=== PATIENT | female | born 1975 | race Caucasian/White ===

== ENCOUNTER 2021-09-06 10:15 | Inpatient (IN) ==
[2021-09-06] MEDS ORDERED: SODIUM CHLORIDE 0.9% 1,000 ML IV STA (10:38)
[2021-09-06 10:47] LABS: Bilirubin,Urine Negative (Negative); Blood, Urine Negative (Negative); Glucose,Urine (UA) >=500 mg/dL (Negative); Ketones,Urine Negative (Negative); Nitrite,Urine Negative (Negative); Protein,Urine Negative; RBC,Urine 1 /HPF (0-4); Squamous Epithelial Cell,Urine Occasional /HPF (0-10); Urine Appearance CLEAR (Clear); Urine Color Yellow (Yellow); Urine Specific Gravity 1.027 (1.001-1.035); Urine Urobilinogen < 2.0 EU/DL (<2.0)
[2021-09-06 10:48] LABS: Basophils # 0.1 10*3/uL (0.0-0.2); Basophils % 0.3 % (0.0-0.8); Eosinophils % 0.1 % (0.00-10.9); Hemoglobin 13.7 GM/DL (12.0-16.0); Immature Granulocytes % 1.3 %; Immature Granulocytes Absolute 0.35 #; Lymphocytes # 1.4 10*3/uL (1.4-4.0); Lymphocytes % 5.1 % (21.3-54.2); Mean Corpuscular HGB Conc 34.3 GM/DL (32-36); Mean Corpuscular Volume 84.9 FL (87-102); Mean Platelet Volume 11.1 FL (9.6-12.0); Monocytes % 8.2 % (1.7-12.7); Platelet Count 291 T/CUMM (130-400); Red Blood Count 4.71 MC/CUMM (3.8-5.5); White Blood Count 27.7 T/CUMM (4-12)
[2021-09-06 11:08] LABS: Alanine Aminotransferase 71 U/L (13-56); Albumin 2.5 G/DL (3.4-5.0); Alkaline Phosphatase 229 U/L (45-117); Aspartate Amino Transferase 75 U/L (0-37); Blood Urea Nitrogen 8 MG/DL (7-18); Calcium 8.6 MG/DL (8.5-10.1); Carbon Dioxide 25 MMOL/L (21-32); Estimated Glom Filtration Rate 87 ML/MIN; Osmolality,Calculated 285.8 MOS/KG (273-304); Potassium 4.1 MMOL/L (3.5-5.1); Sodium 130 MMOL/L (136-145); Total Protein 7.2 G/DL (6.4-8.2)
[2021-09-06 11:14] LABS: Glucose 594 MG/DL (74-106)
[2021-09-06 11:28] LABS: Lymphocytes 1 % (20-55); Metamyelocytes 1 %; Segmented Neutrophils 93 % (50-85); Total Cells Counted 100
[2021-09-06 11:29] LABS: Hypochromia Slight; Platelet Estimate Normal
[2021-09-06] MEDS ORDERED: SODIUM CHLORIDE 0.9% 2,000 ML IV STA (11:39)
[2021-09-06] MEDS ORDERED: LEVOFLOXACIN INJ 750 MG/150 ML PREMIX IV STA (11:39)
[2021-09-06] MEDS ORDERED: INSULIN REGULAR 100 UNIT/ML IV STA (11:40)
[2021-09-06 12:04] LABS: ABG Base Excess 1.6 MMOL/L (-2.5-2.5); ABG HCO3 25.8 MMOL/L (20-26); ABG Oxygen Saturation 96.8 % (95-100); ABG PCO2 31.5 MM HG (35-48); ABG PH 7.493 (7.35-7.45); ABG PO2 80.8 MM HG (80-95)
[2021-09-06] MEDS ORDERED: GLUCAGON 1 MG VIAL IM PRN (12:53)
[2021-09-06] MEDS ORDERED: DEXTROSE 50% 25 GM/50 ML VIAL IV PRN (12:53)
[2021-09-06] MEDS ORDERED: MELATONIN 3 MG TABLET PO PRN (12:55)
[2021-09-06] MEDS ORDERED: BISACODYL 5 MG TABLET PO PRN (12:55)
[2021-09-06] MEDS ORDERED: ACETAMINOPHEN 325 MG TABLET PO PRN (12:55)
[2021-09-06] MEDS ORDERED: MORPHINE 2 MG/1 ML SYRINGE IV PRN (12:55)
[2021-09-06] MEDS ORDERED: NICOTINE 21 MG/24 HR PATCH TRANSDERM PRN (12:55)
[2021-09-06] MEDS: SODIUM CHLORIDE 0.9% 1,000 ML IV SCH ×2 (13:00→18:53)
[2021-09-06] MEDS ORDERED: DEXTROSE 10% 25 GM/250 ML BAG IV PRN (13:02)
[2021-09-06] MEDS: ENOXAPARIN 40 MG/0.4 ML SYRINGE SUBCUT SCH (13:54)
[2021-09-06] MEDS: INSULIN LISPRO 100 UNIT/ML SUBCUT SCH ×2 (13:54→18:52)
[2021-09-06] MEDS: PANTOPRAZOLE 40 MG TABLET PO SCH (13:54)
[2021-09-06 14:04] LABS: Ferritin 251.4 ng/mL (8-252)
[2021-09-06] MEDS: ALBUTEROL 2.5 MG/3 ML NEB RESP TX SCH ×2 (14:37→19:45)
[2021-09-06 14:59] LABS: Barbiturates Screen,Urine Negative (Negative); Benzodiazepines Screen,Urine Negative (Negative); Cannabinoid Screen,Urine Negative (Negative); Opiate Screen,Urine Negative (Negative); Phencyclidine Screen,Urine Negative (Negative)
[2021-09-06] MEDS: ONDANSETRON 4 MG/2 ML VIAL IV PRN (16:26)
[2021-09-06] MEDS: INSULIN GLARGINE 100 UNIT/ML SUBCUT SCH (18:52)
[2021-09-07] MEDS: ALBUTEROL 2.5 MG/3 ML NEB RESP TX SCH ×4 (00:42→19:13)
[2021-09-07] MEDS: SODIUM CHLORIDE 0.9% 1,000 ML IV SCH ×3 (02:00→19:25)
[2021-09-07] MEDS: INSULIN LISPRO 100 UNIT/ML SUBCUT SCH ×6 (02:18→23:11)
[2021-09-07] MEDS: FAMOTIDINE 20 MG TABLET PO SCH ×3 (02:18→21:05)
[2021-09-07] MEDS: ASCORBIC ACID 500 MG TABLET PO SCH ×3 (02:18→21:05)
[2021-09-07 06:38] LABS: Basophils # 0.1 10*3/uL (0.0-0.2); Basophils % 0.3 % (0.0-0.8); Eosinophils % 0.2 % (0.00-10.9); Hematocrit 33.5 VOL% (35.7-47.0); Hemoglobin 11.3 GM/DL (12.0-16.0); Immature Granulocytes % 0.9 %; Immature Granulocytes Absolute 0.24 #; Lymphocytes # 1.5 10*3/uL (1.4-4.0); Mean Corpuscular HGB Conc 33.7 GM/DL (32-36); Mean Corpuscular Volume 86.1 FL (87-102); Mean Platelet Volume 11.3 FL (9.6-12.0); Neutrophils % 85.6 % (38.7-73.9); Platelet Count 290 T/CUMM (130-400); Red Blood Count 3.89 MC/CUMM (3.8-5.5); Red Cell Distribution Width 13.4 % (9.3-17.3); White Blood Count 25.5 T/CUMM (4-12)
[2021-09-07 06:55] LABS: Calcium 7.8 MG/DL (8.5-10.1); Potassium 3.4 MMOL/L (3.5-5.1); Risk Ratio 2.05; VLDL Cholesterol 12.2 MG/DL
[2021-09-07 07:12] LABS: Band Neutrophils 3 % (0-10); Lymphocytes 4 % (20-55); Segmented Neutrophils 88 % (50-85); Total Cells Counted 100
[2021-09-07 07:13] LABS: Microcytosis 1+; Platelet Estimate Normal
[2021-09-07] MEDS ORDERED: DEXAMETHASONE 4 MG/1 ML VIAL IV SCH (09:00)
[2021-09-07] MEDS: INSULIN GLARGINE 100 UNIT/ML SUBCUT SCH ×2 (09:54→21:06)
[2021-09-07] MEDS: CETIRIZINE 10 MG TABLET PO SCH (09:55)
[2021-09-07] MEDS: PANTOPRAZOLE 40 MG TABLET PO SCH (09:56)
[2021-09-07] MEDS: CHOLECALCIFEROL 1,000 UNIT TABLET PO SCH (09:56)
[2021-09-07] MEDS: ZINC GLUCONATE 50 MG TABLET PO SCH (09:56)
[2021-09-07] MEDS ORDERED: MAGNESIUM SULF RIDER 4 GM/100 ML PREMIX IV ONE (11:00)
[2021-09-07] MEDS ORDERED: LEVOFLOXACIN INJ 750 MG/150 ML PREMIX IV SCH (12:00)
[2021-09-07] MEDS ORDERED: POTASSIUM CHLORIDE 20 MEQ TABLET PO ONE (18:00)
[2021-09-07] MEDS ORDERED: VANCOMYCIN INJ 1,500 MG in SODIUM CHLORIDE 0.9% 500 ML IV SCH (18:00)
[2021-09-07] MEDS: ENOXAPARIN 40 MG/0.4 ML SYRINGE SUBCUT SCH (21:05)
[2021-09-08] MEDS: ALBUTEROL 2.5 MG/3 ML NEB RESP TX SCH ×4 (00:34→19:32)
[2021-09-08] MEDS: INSULIN LISPRO 100 UNIT/ML SUBCUT SCH ×8 (01:09→21:49)
[2021-09-08] MEDS: AZTREONAM 2,000 MG in SODIUM CHLORIDE 0.9% 100 ML IV SCH ×3 (02:04→11:07)
[2021-09-08 05:52] LABS: Basophils % 0.1 % (0.0-0.8); Hematocrit 34.7 VOL% (35.7-47.0); Hemoglobin 11.3 GM/DL (12.0-16.0); Immature Granulocytes % 1.1 %; Immature Granulocytes Absolute 0.25 #; Lymphocytes % 4.4 % (21.3-54.2); Mean Corpuscular HGB Conc 32.6 GM/DL (32-36); Mean Corpuscular Volume 88.1 FL (87-102); Monocytes % 6.5 % (1.7-12.7); Neutrophils % 87.9 % (38.7-73.9); Platelet Count 365 T/CUMM (130-400); Red Blood Count 3.94 MC/CUMM (3.8-5.5); Red Cell Distribution Width 13.3 % (9.3-17.3)
[2021-09-08 06:07] LABS: Calcium 8.4 MG/DL (8.5-10.1); Osmolality,Calculated 286.4 MOS/KG (273-304); Potassium 3.5 MMOL/L (3.5-5.1)
[2021-09-08 06:15] LABS: Anisocytosis Slight; Band Neutrophils 7 % (0-10); Lymphocytes 4 % (20-55); Platelet Estimate Normal; Segmented Neutrophils 82 % (50-85); Total Cells Counted 100
[2021-09-08] MEDS: SODIUM CHLORIDE 0.9% 1,000 ML IV SCH ×2 (08:13)
[2021-09-08] MEDS: CHOLECALCIFEROL 1,000 UNIT TABLET PO SCH (09:41)
[2021-09-08] MEDS: PANTOPRAZOLE 40 MG TABLET PO SCH (09:42)
[2021-09-08] MEDS: ZINC GLUCONATE 50 MG TABLET PO SCH (09:42)
[2021-09-08] MEDS: ASCORBIC ACID 500 MG TABLET PO SCH ×2 (09:42→21:47)
[2021-09-08] MEDS: CETIRIZINE 10 MG TABLET PO SCH (09:43)
[2021-09-08] MEDS: FAMOTIDINE 20 MG TABLET PO SCH ×2 (09:43→21:47)
[2021-09-08] MEDS: INSULIN GLARGINE 100 UNIT/ML SUBCUT SCH ×2 (09:44→21:50)
[2021-09-08] MEDS: FLUoxetine 20 MG CAPSULE PO SCH (15:04)
[2021-09-08] MEDS: GABAPENTIN 300 MG CAPSULE PO SCH ×2 (17:50→21:47)
[2021-09-08] MEDS: PIPERACILLIN/TAZOBACTAM 3,375 MG in SODIUM CHLORIDE 0.9% 100 ML IV SCH ×2 (17:50→21:52)
[2021-09-08] MEDS: ENOXAPARIN 40 MG/0.4 ML SYRINGE SUBCUT SCH (21:51)
[2021-09-09] MEDS: ONDANSETRON 4 MG/2 ML VIAL IV PRN ×2 (00:36→18:41)
[2021-09-09] MEDS: ALBUTEROL 2.5 MG/3 ML NEB RESP TX SCH ×3 (01:07→19:19)
[2021-09-09] MEDS: INSULIN LISPRO 100 UNIT/ML SUBCUT SCH ×9 (02:23→22:00)
[2021-09-09] MEDS: PIPERACILLIN/TAZOBACTAM 3,375 MG in SODIUM CHLORIDE 0.9% 100 ML IV SCH ×3 (05:53→22:22)
[2021-09-09 06:17] LABS: Basophils % 0.3 % (0.0-0.8); Eosinophils # 0.1 10*3/uL (0.0-0.87); Eosinophils % 0.5 % (0.00-10.9); Hematocrit 32.9 VOL% (35.7-47.0); Hemoglobin 10.7 GM/DL (12.0-16.0); Immature Granulocytes % 1.4 %; Immature Granulocytes Absolute 0.21 #; Lymphocytes # 2.1 10*3/uL (1.4-4.0); Lymphocytes % 13.5 % (21.3-54.2); Mean Corpuscular HGB Conc 32.5 GM/DL (32-36); Mean Platelet Volume 10.7 FL (9.6-12.0); Monocytes % 6.3 % (1.7-12.7); Platelet Count 414 T/CUMM (130-400); Red Blood Count 3.78 MC/CUMM (3.8-5.5); Red Cell Distribution Width 13.7 % (9.3-17.3); White Blood Count 15.3 T/CUMM (4-12)
[2021-09-09 06:34] LABS: Calcium 8.2 MG/DL (8.5-10.1); Osmolality,Calculated 285.3 MOS/KG (273-304); Potassium 3.2 MMOL/L (3.5-5.1)
[2021-09-09] MEDS: CHOLECALCIFEROL 1,000 UNIT TABLET PO SCH (09:39)
[2021-09-09] MEDS: PANTOPRAZOLE 40 MG TABLET PO SCH (09:39)
[2021-09-09] MEDS: CETIRIZINE 10 MG TABLET PO SCH (09:39)
[2021-09-09] MEDS: ASCORBIC ACID 500 MG TABLET PO SCH ×2 (09:39→20:21)
[2021-09-09] MEDS: FLUoxetine 20 MG CAPSULE PO SCH (09:39)
[2021-09-09] MEDS: ZINC GLUCONATE 50 MG TABLET PO SCH (09:40)
[2021-09-09] MEDS: FAMOTIDINE 20 MG TABLET PO SCH ×2 (09:40→20:22)
[2021-09-09] MEDS: GABAPENTIN 300 MG CAPSULE PO SCH ×3 (09:40→20:22)
[2021-09-09] MEDS: INSULIN GLARGINE 100 UNIT/ML SUBCUT SCH ×2 (10:40→22:25)
[2021-09-09] MEDS ORDERED: POTASSIUM CHLORIDE 20 MEQ TABLET PO ONE (12:27)
[2021-09-09] MEDS: ENOXAPARIN 40 MG/0.4 ML SYRINGE SUBCUT SCH (20:24)
[2021-09-09] MEDS ORDERED: MORPHINE 2 MG/1 ML SYRINGE IV PRN (22:11)
[2021-09-10] MEDS: ALBUTEROL 2.5 MG/3 ML NEB RESP TX SCH ×4 (00:06→19:50)
[2021-09-10] MEDS: INSULIN LISPRO 100 UNIT/ML SUBCUT SCH ×6 (02:33→22:52)
[2021-09-10] MEDS: PIPERACILLIN/TAZOBACTAM 3,375 MG in SODIUM CHLORIDE 0.9% 100 ML IV SCH ×2 (05:42→16:49)
[2021-09-10 05:43] LABS: Basophils # 0.1 10*3/uL (0.0-0.2); Basophils % 0.7 % (0.0-0.8); Eosinophils # 0.2 10*3/uL (0.0-0.87); Eosinophils % 1.8 % (0.00-10.9); Hematocrit 36.4 VOL% (35.7-47.0); Hemoglobin 11.7 GM/DL (12.0-16.0); Immature Granulocytes Absolute 0.25 #; Lymphocytes # 2.8 10*3/uL (1.4-4.0); Lymphocytes % 22.5 % (21.3-54.2); Mean Corpuscular HGB Conc 32.1 GM/DL (32-36); Mean Corpuscular Volume 87.3 FL (87-102); Mean Platelet Volume 10.3 FL (9.6-12.0); Monocytes % 13.3 % (1.7-12.7); Neutrophils % 59.7 % (38.7-73.9); Platelet Count 446 T/CUMM (130-400); Red Blood Count 4.17 MC/CUMM (3.8-5.5); Red Cell Distribution Width 14.1 % (9.3-17.3); White Blood Count 12.5 T/CUMM (4-12)
[2021-09-10 06:09] LABS: Osmolality,Calculated 280.7 MOS/KG (273-304); Potassium 3.4 MMOL/L (3.5-5.1)
[2021-09-10] MEDS: FLUoxetine 20 MG CAPSULE PO SCH (10:51)
[2021-09-10] MEDS: ZINC GLUCONATE 50 MG TABLET PO SCH (10:51)
[2021-09-10] MEDS: CHOLECALCIFEROL 1,000 UNIT TABLET PO SCH (10:51)
[2021-09-10] MEDS: ASCORBIC ACID 500 MG TABLET PO SCH ×2 (10:51→22:51)
[2021-09-10] MEDS: PANTOPRAZOLE 40 MG TABLET PO SCH (10:52)
[2021-09-10] MEDS: CETIRIZINE 10 MG TABLET PO SCH (10:52)
[2021-09-10] MEDS: GABAPENTIN 300 MG CAPSULE PO SCH ×3 (10:52→22:51)
[2021-09-10] MEDS: INSULIN GLARGINE 100 UNIT/ML SUBCUT SCH ×2 (10:53→22:52)
[2021-09-10] MEDS: FAMOTIDINE 20 MG TABLET PO SCH ×2 (10:56→22:51)
[2021-09-10] MEDS: DOXYCYCLINE HYCLATE 100 MG CAPSULE PO SCH ×2 (12:53→22:51)
[2021-09-10] MEDS: POTASSIUM CHLORIDE 20 MEQ TABLET PO SCH ×2 (12:53→22:51)
[2021-09-10] MEDS: ONDANSETRON 4 MG/2 ML VIAL IV PRN (13:50)
[2021-09-10] MEDS ORDERED: INSULIN NPH 100 UNIT/ML SUBCUT SCH (16:30)
[2021-09-10] MEDS: metFORMIN 500 MG TABLET PO SCH (16:48)
[2021-09-10] MEDS: ENOXAPARIN 40 MG/0.4 ML SYRINGE SUBCUT SCH (22:52)
[2021-09-10] MEDS: POLYETHYLENE GLYCOL POWDER 17 GM PACK PO SCH (22:53)
[2021-09-11] MEDS: PIPERACILLIN/TAZOBACTAM 3,375 MG in SODIUM CHLORIDE 0.9% 100 ML IV SCH ×3 (00:36→17:21)
[2021-09-11] MEDS: ALBUTEROL 2.5 MG/3 ML NEB RESP TX SCH ×5 (01:30→19:35)
[2021-09-11 05:32] LABS: Basophils # 0.1 10*3/uL (0.0-0.2); Basophils % 0.4 % (0.0-0.8); Eosinophils # 0.2 10*3/uL (0.0-0.87); Hematocrit 36.1 VOL% (35.7-47.0); Hemoglobin 11.8 GM/DL (12.0-16.0); Immature Granulocytes % 1.7 %; Immature Granulocytes Absolute 0.28 #; Lymphocytes # 2.8 10*3/uL (1.4-4.0); Mean Corpuscular HGB Conc 32.7 GM/DL (32-36); Mean Corpuscular Volume 87.2 FL (87-102); Monocytes % 11.9 % (1.7-12.7); Platelet Count 431 T/CUMM (130-400); Red Blood Count 4.14 MC/CUMM (3.8-5.5); Red Cell Distribution Width 14.1 % (9.3-17.3); White Blood Count 16.6 T/CUMM (4-12)
[2021-09-11] MEDS: INSULIN LISPRO 100 UNIT/ML SUBCUT SCH ×7 (05:53→22:27)
[2021-09-11 05:54] LABS: Basophils # 0.1 10*3/uL (0.0-0.2); Basophils % 0.4 % (0.0-0.8); Eosinophils # 0.2 10*3/uL (0.0-0.87); Eosinophils % 1.1 % (0.00-10.9); Hematocrit 37.6 VOL% (35.7-47.0); Hemoglobin 12.6 GM/DL (12.0-16.0); Immature Granulocytes % 1.8 %; Immature Granulocytes Absolute 0.28 #; Lymphocytes # 2.8 10*3/uL (1.4-4.0); Lymphocytes % 17.4 % (21.3-54.2); Mean Corpuscular HGB Conc 33.5 GM/DL (32-36); Monocytes % 10.8 % (1.7-12.7); Neutrophils % 68.5 % (38.7-73.9); Platelet Count 416 T/CUMM (130-400); Red Blood Count 4.32 MC/CUMM (3.8-5.5); Red Cell Distribution Width 14.1 % (9.3-17.3); White Blood Count 15.9 T/CUMM (4-12)
[2021-09-11 05:55] LABS: Folate 5.11 NG/ML (5.38-24.0); Vitamin B12 279 PG/ML (211-911)
[2021-09-11 07:08] LABS: Sedimentation Rate-Westergren 69 MM/HR (0-20)
[2021-09-11] MEDS: INSULIN GLARGINE 100 UNIT/ML SUBCUT SCH ×2 (09:35→22:27)
[2021-09-11] MEDS: PANTOPRAZOLE 40 MG TABLET PO SCH (09:35)
[2021-09-11] MEDS: CHOLECALCIFEROL 1,000 UNIT TABLET PO SCH (09:35)
[2021-09-11] MEDS: FAMOTIDINE 20 MG TABLET PO SCH ×2 (09:35→21:40)
[2021-09-11] MEDS: GABAPENTIN 300 MG CAPSULE PO SCH ×3 (09:35→21:40)
[2021-09-11] MEDS: metFORMIN 500 MG TABLET PO SCH ×2 (09:35→17:21)
[2021-09-11] MEDS: ZINC GLUCONATE 50 MG TABLET PO SCH (09:35)
[2021-09-11] MEDS: CETIRIZINE 10 MG TABLET PO SCH (09:35)
[2021-09-11] MEDS: FLUoxetine 20 MG CAPSULE PO SCH (09:35)
[2021-09-11] MEDS: CYANOCOBALAMIN 500 MCG TABLET PO SCH (09:35)
[2021-09-11] MEDS: ASCORBIC ACID 500 MG TABLET PO SCH ×2 (09:35→21:40)
[2021-09-11] MEDS: DOXYCYCLINE HYCLATE 100 MG CAPSULE PO SCH ×2 (09:35→21:40)
[2021-09-11] MEDS: POTASSIUM CHLORIDE 20 MEQ TABLET PO SCH (09:35)
[2021-09-11] MEDS: LINACLOTIDE 145 MCG CAPSULE PO SCH (09:35)
[2021-09-11] MEDS: POLYETHYLENE GLYCOL POWDER 17 GM PACK PO SCH ×2 (09:54→21:41)
[2021-09-11] MEDS: ENOXAPARIN 40 MG/0.4 ML SYRINGE SUBCUT SCH (21:40)
[2021-09-11] MEDS: NAPROXEN 500 MG TABLET PO SCH (21:40)
[2021-09-11] MEDS: FOLIC ACID 1 MG TABLET PO SCH (21:40)
[2021-09-11] MEDS: BACLOFEN 10 MG TABLET PO SCH (21:40)
[2021-09-12] MEDS: ALBUTEROL 2.5 MG/3 ML NEB RESP TX SCH ×5 (00:30→20:05)
[2021-09-12] MEDS: PIPERACILLIN/TAZOBACTAM 3,375 MG in SODIUM CHLORIDE 0.9% 100 ML IV SCH (00:30)
[2021-09-12] MEDS: INSULIN LISPRO 100 UNIT/ML SUBCUT SCH ×6 (03:33→22:31)
[2021-09-12 06:49] LABS: Basophils # 0.1 10*3/uL (0.0-0.2); Basophils % 0.5 % (0.0-0.8); Eosinophils # 0.4 10*3/uL (0.0-0.87); Eosinophils % 2.4 % (0.00-10.9); Hematocrit 35.3 VOL% (35.7-47.0); Hemoglobin 11.5 GM/DL (12.0-16.0); Immature Granulocytes % 2.4 %; Immature Granulocytes Absolute 0.42 #; Lymphocytes # 3.3 10*3/uL (1.4-4.0); Lymphocytes % 19.1 % (21.3-54.2); Mean Corpuscular HGB Conc 32.6 GM/DL (32-36); Mean Corpuscular Volume 88.3 FL (87-102); Monocytes % 10.3 % (1.7-12.7); Neutrophils % 65.3 % (38.7-73.9); Platelet Count 465 T/CUMM (130-400); Red Cell Distribution Width 14.1 % (9.3-17.3); White Blood Count 17.3 T/CUMM (4-12)
[2021-09-12 07:07] LABS: Calcium 8.7 MG/DL (8.5-10.1); Osmolality,Calculated 271.7 MOS/KG (273-304); Potassium 3.3 MMOL/L (3.5-5.1)
[2021-09-12] MEDS: ZINC GLUCONATE 50 MG TABLET PO SCH (08:57)
[2021-09-12] MEDS: GABAPENTIN 300 MG CAPSULE PO SCH ×3 (08:58→21:14)
[2021-09-12] MEDS: BACLOFEN 10 MG TABLET PO SCH ×3 (08:58→21:14)
[2021-09-12] MEDS: DOXYCYCLINE HYCLATE 100 MG CAPSULE PO SCH ×2 (08:58→21:14)
[2021-09-12] MEDS: CETIRIZINE 10 MG TABLET PO SCH (08:58)
[2021-09-12] MEDS: ASCORBIC ACID 500 MG TABLET PO SCH ×2 (08:58→21:13)
[2021-09-12] MEDS: FLUoxetine 20 MG CAPSULE PO SCH (08:58)
[2021-09-12] MEDS: CHOLECALCIFEROL 1,000 UNIT TABLET PO SCH (08:58)
[2021-09-12] MEDS: NAPROXEN 500 MG TABLET PO SCH ×2 (08:58→21:14)
[2021-09-12] MEDS: metFORMIN 500 MG TABLET PO SCH ×2 (08:59→17:06)
[2021-09-12] MEDS: FAMOTIDINE 20 MG TABLET PO SCH ×2 (08:59→21:14)
[2021-09-12] MEDS: CYANOCOBALAMIN 500 MCG TABLET PO SCH (08:59)
[2021-09-12] MEDS: PANTOPRAZOLE 40 MG TABLET PO SCH (08:59)
[2021-09-12] MEDS: MEROPENEM 500 MG in SODIUM CHLORIDE 0.9% 100 ML IV SCH ×3 (09:02→21:12)
[2021-09-12 09:07] LABS: Hemoglobin A1 (Alkaline) 97.6 % (96.5-98.5); Hemoglobin A2 (Alkaline) 2.4 % (1.5-3.5)
[2021-09-12] MEDS: LINEZOLID 600 MG TABLET PO SCH ×2 (09:08→21:13)
[2021-09-12] MEDS: POLYETHYLENE GLYCOL POWDER 17 GM PACK PO SCH ×2 (09:09→21:15)
[2021-09-12] MEDS: LINACLOTIDE 145 MCG CAPSULE PO SCH (09:09)
[2021-09-12] MEDS: ENOXAPARIN 40 MG/0.4 ML SYRINGE SUBCUT SCH (21:12)
[2021-09-12] MEDS: FOLIC ACID 1 MG TABLET PO SCH (21:13)
[2021-09-12] MEDS: POTASSIUM CHLORIDE 20 MEQ TABLET PO SCH (21:13)
[2021-09-13] MEDS: ALBUTEROL 2.5 MG/3 ML NEB RESP TX SCH ×4 (00:33→19:00)
[2021-09-13] MEDS: MEROPENEM 500 MG in SODIUM CHLORIDE 0.9% 100 ML IV SCH ×4 (03:03→22:17)
[2021-09-13] MEDS: INSULIN LISPRO 100 UNIT/ML SUBCUT SCH ×6 (03:04→22:30)
[2021-09-13 05:43] LABS: Basophils # 0.1 10*3/uL (0.0-0.2); Basophils % 0.5 % (0.0-0.8); Eosinophils # 0.9 10*3/uL (0.0-0.87); Eosinophils % 4.6 % (0.00-10.9); Hemoglobin 11.2 GM/DL (12.0-16.0); Immature Granulocytes % 2.8 %; Immature Granulocytes Absolute 0.54 #; Lymphocytes # 2.8 10*3/uL (1.4-4.0); Lymphocytes % 14.6 % (21.3-54.2); Mean Corpuscular Volume 88.2 FL (87-102); Mean Platelet Volume 9.8 FL (9.6-12.0); Monocytes % 7.6 % (1.7-12.7); Neutrophils % 69.9 % (38.7-73.9); Platelet Count 516 T/CUMM (130-400); Red Blood Count 3.97 MC/CUMM (3.8-5.5); Red Cell Distribution Width 14.2 % (9.3-17.3); White Blood Count 19.5 T/CUMM (4-12)
[2021-09-13 06:09] LABS: Calcium 8.9 MG/DL (8.5-10.1); Potassium 4.1 MMOL/L (3.5-5.1)
[2021-09-13] MEDS: ONDANSETRON 4 MG/2 ML VIAL IV PRN (06:24)
[2021-09-13 06:36] LABS: Band Neutrophils 2 % (0-10); Eosinophils 2 % (0-10); Lymphocytes 18 % (20-55); Segmented Neutrophils 70 % (50-85); Total Cells Counted 100
[2021-09-13 06:37] LABS: Hypochromia 1+; Microcytosis Slight; Polychromasia Slight
[2021-09-13] MEDS: CHOLECALCIFEROL 1,000 UNIT TABLET PO SCH (10:25)
[2021-09-13] MEDS: NAPROXEN 500 MG TABLET PO SCH ×2 (10:26→22:17)
[2021-09-13] MEDS: ZINC GLUCONATE 50 MG TABLET PO SCH (10:26)
[2021-09-13] MEDS: FLUoxetine 20 MG CAPSULE PO SCH (10:26)
[2021-09-13] MEDS: ASCORBIC ACID 500 MG TABLET PO SCH ×2 (10:26→22:18)
[2021-09-13] MEDS: DOXYCYCLINE HYCLATE 100 MG CAPSULE PO SCH ×2 (10:26→22:18)
[2021-09-13] MEDS: POTASSIUM CHLORIDE 20 MEQ TABLET PO SCH ×2 (10:26→22:17)
[2021-09-13] MEDS: CETIRIZINE 10 MG TABLET PO SCH (10:26)
[2021-09-13] MEDS: LINEZOLID 600 MG TABLET PO SCH ×2 (10:26→22:18)
[2021-09-13] MEDS: PANTOPRAZOLE 40 MG TABLET PO SCH (10:26)
[2021-09-13] MEDS: GABAPENTIN 300 MG CAPSULE PO SCH ×3 (10:27→22:18)
[2021-09-13] MEDS: CYANOCOBALAMIN 500 MCG TABLET PO SCH (10:27)
[2021-09-13] MEDS: BACLOFEN 10 MG TABLET PO SCH ×3 (10:27→22:17)
[2021-09-13] MEDS: FAMOTIDINE 20 MG TABLET PO SCH ×2 (10:27→22:18)
[2021-09-13] MEDS: metFORMIN 500 MG TABLET PO SCH ×2 (10:29→17:50)
[2021-09-13] MEDS: LINACLOTIDE 145 MCG CAPSULE PO SCH (10:29)
[2021-09-13] MEDS: POLYETHYLENE GLYCOL POWDER 17 GM PACK PO SCH ×2 (10:30→22:17)
[2021-09-13] MEDS: ENOXAPARIN 40 MG/0.4 ML SYRINGE SUBCUT SCH (22:17)
[2021-09-13] MEDS: FOLIC ACID 1 MG TABLET PO SCH (22:17)
[2021-09-13] MEDS: guaiFENesin/DM ER 600-30 MG TABLET PO PRN (22:18)
[2021-09-14] MEDS: ALBUTEROL 2.5 MG/3 ML NEB RESP TX SCH ×4 (00:18→19:13)
[2021-09-14] MEDS: INSULIN LISPRO 100 UNIT/ML SUBCUT SCH ×6 (02:43→21:59)
[2021-09-14] MEDS: MEROPENEM 500 MG in SODIUM CHLORIDE 0.9% 100 ML IV SCH ×4 (03:30→21:39)
[2021-09-14 06:51] LABS: Basophils # 0.1 10*3/uL (0.0-0.2); Basophils % 0.5 % (0.0-0.8); Eosinophils # 0.9 10*3/uL (0.0-0.87); Eosinophils % 5.4 % (0.00-10.9); Hematocrit 34.9 VOL% (35.7-47.0); Hemoglobin 11.2 GM/DL (12.0-16.0); Immature Granulocytes % 3.2 %; Immature Granulocytes Absolute 0.54 #; Lymphocytes % 11.7 % (21.3-54.2); Mean Corpuscular HGB Conc 32.1 GM/DL (32-36); Mean Corpuscular Volume 88.8 FL (87-102); Mean Platelet Volume 9.7 FL (9.6-12.0); Monocytes % 7.2 % (1.7-12.7); Platelet Count 554 T/CUMM (130-400); Red Blood Count 3.93 MC/CUMM (3.8-5.5); Red Cell Distribution Width 14.1 % (9.3-17.3); White Blood Count 17.1 T/CUMM (4-12)
[2021-09-14 07:16] LABS: Calcium 8.7 MG/DL (8.5-10.1); Osmolality,Calculated 277.5 MOS/KG (273-304); Potassium 4.4 MMOL/L (3.5-5.1)
[2021-09-14 07:19] LABS: Eosinophils 1 % (0-10); Hypochromia Slight; Lymphocytes 11 % (20-55); Microcytosis Slight; Nucleated Red Blood Cells 1 (0-5); Platelet Estimate Adequate; Segmented Neutrophils 80 % (50-85); Total Cells Counted 100
[2021-09-14 08:35] LABS: INR 1.1; PT Patient Result 11.8 SECS (10.5-12.0)
[2021-09-14] MEDS ORDERED: DAPAGLIFLOZIN 5 MG TABLET PO SCH (09:00)
[2021-09-14] MEDS: metFORMIN 500 MG TABLET PO SCH (09:40)
[2021-09-14] MEDS: FLUoxetine 20 MG CAPSULE PO SCH (09:40)
[2021-09-14] MEDS: BACLOFEN 10 MG TABLET PO SCH ×3 (09:41→21:42)
[2021-09-14] MEDS: POTASSIUM CHLORIDE 20 MEQ TABLET PO SCH (09:41)
[2021-09-14] MEDS: ASCORBIC ACID 500 MG TABLET PO SCH ×2 (09:41→21:41)
[2021-09-14] MEDS: ZINC GLUCONATE 50 MG TABLET PO SCH (09:41)
[2021-09-14] MEDS: GABAPENTIN 300 MG CAPSULE PO SCH ×3 (09:41→21:41)
[2021-09-14] MEDS: PANTOPRAZOLE 40 MG TABLET PO SCH (09:41)
[2021-09-14] MEDS: LINEZOLID 600 MG TABLET PO SCH ×2 (09:42→21:41)
[2021-09-14] MEDS: NAPROXEN 500 MG TABLET PO SCH ×2 (09:42→21:41)
[2021-09-14] MEDS: CETIRIZINE 10 MG TABLET PO SCH (09:42)
[2021-09-14] MEDS: FAMOTIDINE 20 MG TABLET PO SCH ×2 (09:42→21:42)
[2021-09-14] MEDS: CHOLECALCIFEROL 1,000 UNIT TABLET PO SCH (09:42)
[2021-09-14] MEDS: CYANOCOBALAMIN 500 MCG TABLET PO SCH (09:42)
[2021-09-14] MEDS: DOXYCYCLINE HYCLATE 100 MG CAPSULE PO SCH ×2 (09:44→21:41)
[2021-09-14] MEDS: LINACLOTIDE 145 MCG CAPSULE PO SCH (10:32)
[2021-09-14] MEDS: POLYETHYLENE GLYCOL POWDER 17 GM PACK PO SCH ×2 (10:32→22:01)
[2021-09-14] MEDS: ACETYLCYSTEINE 600 MG CAPSULE PO SCH ×2 (17:44→21:59)
[2021-09-14] MEDS: guaiFENesin/DM ER 600-30 MG TABLET PO PRN (21:41)
[2021-09-14] MEDS: FOLIC ACID 1 MG TABLET PO SCH (21:42)
[2021-09-14] MEDS: ENOXAPARIN 40 MG/0.4 ML SYRINGE SUBCUT SCH (21:43)
[2021-09-15] MEDS: ALBUTEROL 2.5 MG/3 ML NEB RESP TX SCH ×4 (01:04→19:34)
[2021-09-15] MEDS: MEROPENEM 500 MG in SODIUM CHLORIDE 0.9% 100 ML IV SCH ×4 (03:32→21:57)
[2021-09-15] MEDS: INSULIN LISPRO 100 UNIT/ML SUBCUT SCH ×5 (03:37→22:01)
[2021-09-15 05:29] LABS: Basophils # 0.1 10*3/uL (0.0-0.2); Basophils % 0.5 % (0.0-0.8); Eosinophils # 0.8 10*3/uL (0.0-0.87); Eosinophils % 4.6 % (0.00-10.9); Hematocrit 34.3 VOL% (35.7-47.0); Hemoglobin 10.9 GM/DL (12.0-16.0); Immature Granulocytes % 2.2 %; Immature Granulocytes Absolute 0.36 #; Lymphocytes # 2.2 10*3/uL (1.4-4.0); Lymphocytes % 13.1 % (21.3-54.2); Mean Corpuscular HGB Conc 31.8 GM/DL (32-36); Mean Platelet Volume 9.8 FL (9.6-12.0); Monocytes % 5.2 % (1.7-12.7); Neutrophils % 74.4 % (38.7-73.9); Platelet Count 496 T/CUMM (130-400); Red Blood Count 3.81 MC/CUMM (3.8-5.5); Red Cell Distribution Width 14.3 % (9.3-17.3); White Blood Count 16.7 T/CUMM (4-12)
[2021-09-15 05:58] LABS: Calcium 8.7 MG/DL (8.5-10.1); Osmolality,Calculated 274.8 MOS/KG (273-304); Potassium 3.7 MMOL/L (3.5-5.1)
[2021-09-15] MEDS: ONDANSETRON 4 MG/2 ML VIAL IV PRN ×2 (06:25→17:09)
[2021-09-15] MEDS: LINACLOTIDE 145 MCG CAPSULE PO SCH (07:50)
[2021-09-15] MEDS: CETIRIZINE 10 MG TABLET PO SCH (09:46)
[2021-09-15] MEDS: BACLOFEN 10 MG TABLET PO SCH ×3 (09:46→22:02)
[2021-09-15] MEDS: LINEZOLID 600 MG TABLET PO SCH ×2 (09:47→22:01)
[2021-09-15] MEDS: DAPAGLIFLOZIN 10 MG TABLET PO SCH (09:47)
[2021-09-15] MEDS: POTASSIUM CHLORIDE 20 MEQ TABLET PO SCH (09:47)
[2021-09-15] MEDS: FLUoxetine 20 MG CAPSULE PO SCH (09:47)
[2021-09-15] MEDS: CYANOCOBALAMIN 500 MCG TABLET PO SCH (09:47)
[2021-09-15] MEDS: ZINC GLUCONATE 50 MG TABLET PO SCH (09:47)
[2021-09-15] MEDS: PANTOPRAZOLE 40 MG TABLET PO SCH (09:47)
[2021-09-15] MEDS: NAPROXEN 500 MG TABLET PO SCH ×2 (09:47→22:02)
[2021-09-15] MEDS: DOXYCYCLINE HYCLATE 100 MG CAPSULE PO SCH ×2 (09:47→22:02)
[2021-09-15] MEDS: ASCORBIC ACID 500 MG TABLET PO SCH ×2 (09:47→22:02)
[2021-09-15] MEDS: GABAPENTIN 300 MG CAPSULE PO SCH ×3 (09:47→22:03)
[2021-09-15] MEDS: FAMOTIDINE 20 MG TABLET PO SCH ×2 (09:48→22:02)
[2021-09-15] MEDS: CHOLECALCIFEROL 5,000 UNIT TABLET PO SCH (09:48)
[2021-09-15] MEDS: ACETYLCYSTEINE 600 MG CAPSULE PO SCH ×2 (09:52→22:13)
[2021-09-15] MEDS: POLYETHYLENE GLYCOL POWDER 17 GM PACK PO SCH ×2 (09:56→22:04)
[2021-09-15] MEDS: guaiFENesin/DM ER 600-30 MG TABLET PO PRN (22:03)
[2021-09-15] MEDS: FOLIC ACID 1 MG TABLET PO SCH (22:03)
[2021-09-15] MEDS: ENOXAPARIN 40 MG/0.4 ML SYRINGE SUBCUT SCH (22:04)
[2021-09-16] MEDS: ALBUTEROL 2.5 MG/3 ML NEB RESP TX SCH ×4 (01:24→19:24)
[2021-09-16] MEDS: MEROPENEM 500 MG in SODIUM CHLORIDE 0.9% 100 ML IV SCH ×4 (03:55→21:13)
[2021-09-16] MEDS: ONDANSETRON 4 MG/2 ML VIAL IV PRN (05:13)
[2021-09-16 06:30] LABS: Basophils # 0.1 10*3/uL (0.0-0.2); Basophils % 0.5 % (0.0-0.8); Eosinophils # 0.8 10*3/uL (0.0-0.87); Eosinophils % 3.8 % (0.00-10.9); Hematocrit 34.2 VOL% (35.7-47.0); Hemoglobin 10.8 GM/DL (12.0-16.0); Immature Granulocytes % 1.9 %; Immature Granulocytes Absolute 0.41 #; Lymphocytes # 2.2 10*3/uL (1.4-4.0); Lymphocytes % 10.2 % (21.3-54.2); Mean Corpuscular HGB Conc 31.6 GM/DL (32-36); Mean Corpuscular Volume 90.7 FL (87-102); Mean Platelet Volume 9.7 FL (9.6-12.0); Monocytes % 5.1 % (1.7-12.7); Neutrophils % 78.5 % (38.7-73.9); Platelet Count 586 T/CUMM (130-400); Red Blood Count 3.77 MC/CUMM (3.8-5.5); Red Cell Distribution Width 14.5 % (9.3-17.3); White Blood Count 21.2 T/CUMM (4-12)
[2021-09-16 06:41] LABS: Calcium 9.4 MG/DL (8.5-10.1); Osmolality,Calculated 274.8 MOS/KG (273-304); Potassium 4.1 MMOL/L (3.5-5.1)
[2021-09-16] MEDS: LINACLOTIDE 145 MCG CAPSULE PO SCH (07:21)
[2021-09-16 08:51] LABS: ABG Base Excess -3.8 MMOL/L (-2.5-2.5); ABG HCO3 20.3 MMOL/L (20-26); ABG Oxygen Saturation 91.8 % (95-100); ABG PCO2 33.9 MM HG (35-48); ABG PH 7.396 (7.35-7.45); ABG PO2 63.9 MM HG (80-95); ABG TCO2 21.4 MMOL/L (23-27)
[2021-09-16] MEDS: FLUoxetine 20 MG CAPSULE PO SCH (09:40)
[2021-09-16] MEDS: CETIRIZINE 10 MG TABLET PO SCH (09:40)
[2021-09-16] MEDS: POTASSIUM CHLORIDE 20 MEQ TABLET PO SCH (09:40)
[2021-09-16] MEDS: ZINC GLUCONATE 50 MG TABLET PO SCH (09:41)
[2021-09-16] MEDS: GABAPENTIN 300 MG CAPSULE PO SCH ×3 (09:41→21:07)
[2021-09-16] MEDS: DOXYCYCLINE HYCLATE 100 MG CAPSULE PO SCH ×2 (09:41→21:07)
[2021-09-16] MEDS: BACLOFEN 10 MG TABLET PO SCH ×3 (09:41→21:07)
[2021-09-16] MEDS: ACETYLCYSTEINE 600 MG CAPSULE PO SCH (09:41)
[2021-09-16] MEDS: PANTOPRAZOLE 40 MG TABLET PO SCH (09:42)
[2021-09-16] MEDS: CHOLECALCIFEROL 5,000 UNIT TABLET PO SCH (09:42)
[2021-09-16] MEDS: FAMOTIDINE 20 MG TABLET PO SCH ×2 (09:42→21:08)
[2021-09-16] MEDS: CYANOCOBALAMIN 500 MCG TABLET PO SCH (09:42)
[2021-09-16] MEDS: ASCORBIC ACID 500 MG TABLET PO SCH ×2 (09:42→21:06)
[2021-09-16] MEDS: INSULIN LISPRO 100 UNIT/ML SUBCUT SCH ×4 (09:43→21:09)
[2021-09-16] MEDS: POLYETHYLENE GLYCOL POWDER 17 GM PACK PO SCH ×2 (09:43→20:36)
[2021-09-16] MEDS: DAPAGLIFLOZIN 10 MG TABLET PO SCH (09:46)
[2021-09-16] MEDS: FUROSEMIDE 40 MG/4 ML VIAL IV SCH ×2 (09:46→21:07)
[2021-09-16] MEDS: NAPROXEN 500 MG TABLET PO SCH (19:37)
[2021-09-16] MEDS: LINEZOLID 600 MG TABLET PO SCH (19:37)
[2021-09-16] MEDS: MONTELUKAST 10 MG TABLET PO SCH (21:06)
[2021-09-16] MEDS: ENOXAPARIN 40 MG/0.4 ML SYRINGE SUBCUT SCH (21:06)
[2021-09-16] MEDS: FOLIC ACID 1 MG TABLET PO SCH (21:07)
[2021-09-16] MEDS: guaiFENesin/DM ER 600-30 MG TABLET PO PRN (21:07)
[2021-09-16] MEDS: DEXAMETHASONE 10 MG/1 ML VIAL IV SCH (21:09)
[2021-09-16] MEDS: LINEZOLID INJ 600 MG/300 ML PREMIX IV SCH (21:55)
[2021-09-16] MEDS: ALUMINUM/MAGNES/SIMETH MAX STR 30 ML UDCUP PO SCH (22:09)
[2021-09-17] MEDS: ALBUTEROL 2.5 MG/3 ML NEB RESP TX SCH ×4 (01:18→20:21)
[2021-09-17] MEDS: ONDANSETRON 4 MG/2 ML VIAL IV PRN (01:53)
[2021-09-17] MEDS: MEROPENEM 500 MG in SODIUM CHLORIDE 0.9% 100 ML IV SCH ×4 (02:57→22:40)
[2021-09-17 07:43] LABS: Calcium 9.8 MG/DL (8.5-10.1); Osmolality,Calculated 274.4 MOS/KG (273-304); Potassium 4.4 MMOL/L (3.5-5.1)
[2021-09-17 13:01] LABS: Basophils % 0.2 % (0.0-0.8); Eosinophils % 0.1 % (0.00-10.9); Hematocrit 34.2 VOL% (35.7-47.0); Lymphocytes % 5.4 % (21.3-54.2); Mean Corpuscular HGB Conc 32.2 GM/DL (32-36); Mean Corpuscular Volume 89.1 FL (87-102); Mean Platelet Volume 10.2 FL (9.6-12.0); Monocytes % 1.1 % (1.7-12.7); Neutrophils % 92.3 % (38.7-73.9); Platelet Count 557 T/CUMM (130-400); Red Blood Count 3.84 MC/CUMM (3.8-5.5); Red Cell Distribution Width 14.4 % (9.3-17.3); White Blood Count 20.8 T/CUMM (4-12)
[2021-09-17 13:02] LABS: Immature Granulocytes % 0.9 %; Immature Granulocytes Absolute 0.18 #; Lymphocytes # 1.1 10*3/uL (1.4-4.0)
[2021-09-17] MEDS: BACLOFEN 10 MG TABLET PO SCH ×3 (13:35→22:39)
[2021-09-17] MEDS: POTASSIUM CHLORIDE 20 MEQ TABLET PO SCH (13:35)
[2021-09-17] MEDS: LINACLOTIDE 145 MCG CAPSULE PO SCH (13:35)
[2021-09-17] MEDS: DAPAGLIFLOZIN 10 MG TABLET PO SCH (13:35)
[2021-09-17] MEDS: FUROSEMIDE 40 MG/4 ML VIAL IV SCH ×2 (13:35→17:22)
[2021-09-17] MEDS: DEXAMETHASONE 10 MG/1 ML VIAL IV SCH ×2 (13:35→22:38)
[2021-09-17] MEDS: POLYETHYLENE GLYCOL POWDER 17 GM PACK PO SCH ×2 (13:36→22:40)
[2021-09-17] MEDS: CYANOCOBALAMIN 500 MCG TABLET PO SCH (13:37)
[2021-09-17] MEDS: ALUMINUM/MAGNES/SIMETH MAX STR 30 ML UDCUP PO SCH (13:37)
[2021-09-17] MEDS: ASCORBIC ACID 500 MG TABLET PO SCH ×2 (13:37→22:39)
[2021-09-17] MEDS: GABAPENTIN 300 MG CAPSULE PO SCH ×3 (13:37→22:39)
[2021-09-17] MEDS: CHOLECALCIFEROL 5,000 UNIT TABLET PO SCH (13:38)
[2021-09-17] MEDS: CETIRIZINE 10 MG TABLET PO SCH (13:38)
[2021-09-17] MEDS: LINEZOLID INJ 600 MG/300 ML PREMIX IV SCH ×2 (13:38→23:50)
[2021-09-17] MEDS: INSULIN LISPRO 100 UNIT/ML SUBCUT SCH ×4 (13:54→22:38)
[2021-09-17] MEDS: FAMOTIDINE 20 MG TABLET PO SCH (20:26)
[2021-09-17] MEDS: DOXYCYCLINE HYCLATE 100 MG CAPSULE PO SCH (20:26)
[2021-09-17] MEDS: PANTOPRAZOLE 40 MG TABLET PO SCH (20:26)
[2021-09-17] MEDS ORDERED: INSULIN GLARGINE 100 UNIT/ML SUBCUT SCH (21:00)
[2021-09-17] MEDS: ENOXAPARIN 40 MG/0.4 ML SYRINGE SUBCUT SCH (22:37)
[2021-09-17] MEDS: PANTOPRAZOLE 40 MG VIAL IV SCH (22:38)
[2021-09-17] MEDS: MONTELUKAST 10 MG TABLET PO SCH (22:39)
[2021-09-17] MEDS: FOLIC ACID 1 MG TABLET PO SCH (22:39)
[2021-09-18] MEDS: ALBUTEROL 2.5 MG/3 ML NEB RESP TX SCH ×4 (01:58→20:10)
[2021-09-18] MEDS: MEROPENEM 500 MG in SODIUM CHLORIDE 0.9% 100 ML IV SCH ×4 (03:15→21:50)
[2021-09-18 06:08] LABS: Basophils % 0.2 % (0.0-0.8); Hematocrit 32.4 VOL% (35.7-47.0); Hemoglobin 10.3 GM/DL (12.0-16.0); Immature Granulocytes % 1.3 %; Immature Granulocytes Absolute 0.27 #; Lymphocytes % 4.7 % (21.3-54.2); Mean Corpuscular HGB Conc 31.8 GM/DL (32-36); Mean Corpuscular Volume 89.3 FL (87-102); Mean Platelet Volume 9.8 FL (9.6-12.0); Monocytes % 2.5 % (1.7-12.7); Neutrophils % 91.3 % (38.7-73.9); Platelet Count 613 T/CUMM (130-400); Red Blood Count 3.63 MC/CUMM (3.8-5.5); Red Cell Distribution Width 14.2 % (9.3-17.3); White Blood Count 21.6 T/CUMM (4-12)
[2021-09-18 06:19] LABS: Alanine Aminotransferase 20 U/L (13-56); Albumin 1.5 G/DL (3.4-5.0); Alkaline Phosphatase 306 U/L (45-117); Aspartate Amino Transferase 18 U/L (0-37); Bilirubin,Total < 0.39 MG/DL (0.20-1.00); Blood Urea Nitrogen 21 MG/DL (7-18); Calcium 9.7 MG/DL (8.5-10.1); Carbon Dioxide 26 MMOL/L (21-32); Estimated Glom Filtration Rate 99 ML/MIN; Glucose 389 MG/DL (74-106); Osmolality,Calculated 282.5 MOS/KG (273-304); Potassium 4.3 MMOL/L (3.5-5.1); Sodium 132 MMOL/L (136-145); Total Protein 7.9 G/DL (6.4-8.2)
[2021-09-18 06:39] LABS: Band Neutrophils 1 % (0-10); Hypochromia 1+; Lymphocytes 4 % (20-55); Microcytosis 1+; Segmented Neutrophils 92 % (50-85); Total Cells Counted 100
[2021-09-18] MEDS: INSULIN LISPRO 100 UNIT/ML SUBCUT SCH ×4 (08:58→21:52)
[2021-09-18] MEDS: LINACLOTIDE 145 MCG CAPSULE PO SCH (09:50)
[2021-09-18] MEDS: FUROSEMIDE 40 MG/4 ML VIAL IV SCH ×2 (09:51→17:39)
[2021-09-18] MEDS: DAPAGLIFLOZIN 10 MG TABLET PO SCH (09:51)
[2021-09-18] MEDS: DEXAMETHASONE 10 MG/1 ML VIAL IV SCH ×2 (09:51→21:51)
[2021-09-18] MEDS: POTASSIUM CHLORIDE 20 MEQ TABLET PO SCH (09:52)
[2021-09-18] MEDS: BACLOFEN 10 MG TABLET PO SCH ×3 (09:52→21:51)
[2021-09-18] MEDS: ENOXAPARIN 40 MG/0.4 ML SYRINGE SUBCUT SCH ×2 (09:53→22:57)
[2021-09-18] MEDS: ALUMINUM/MAGNES/SIMETH MAX STR 30 ML UDCUP PO SCH (09:54)
[2021-09-18] MEDS: POLYETHYLENE GLYCOL POWDER 17 GM PACK PO SCH ×2 (09:54→22:56)
[2021-09-18] MEDS: GABAPENTIN 300 MG CAPSULE PO SCH ×3 (09:54→21:51)
[2021-09-18] MEDS: PANTOPRAZOLE 40 MG VIAL IV SCH ×2 (09:55→21:52)
[2021-09-18] MEDS: CYANOCOBALAMIN 500 MCG TABLET PO SCH (09:55)
[2021-09-18] MEDS: CHOLECALCIFEROL 5,000 UNIT TABLET PO SCH (09:56)
[2021-09-18] MEDS: ASCORBIC ACID 500 MG TABLET PO SCH ×2 (09:56→21:50)
[2021-09-18] MEDS: CETIRIZINE 10 MG TABLET PO SCH (09:57)
[2021-09-18] MEDS: LINEZOLID INJ 600 MG/300 ML PREMIX IV SCH ×2 (10:00→22:56)
[2021-09-18] MEDS ORDERED: ALUM/MAG/SIMETH/LIDO VISC 1:1 30 ML BOTTLE PO ONE (18:25)
[2021-09-18] MEDS: MONTELUKAST 10 MG TABLET PO SCH (21:50)
[2021-09-18] MEDS: FOLIC ACID 1 MG TABLET PO SCH (21:51)
[2021-09-18] MEDS: INSULIN GLARGINE 100 UNIT/ML SUBCUT SCH (21:52)
[2021-09-19] MEDS: ALBUTEROL 2.5 MG/3 ML NEB RESP TX SCH ×4 (01:05→19:55)
[2021-09-19] MEDS: ONDANSETRON 4 MG/2 ML VIAL IV PRN (02:39)
[2021-09-19] MEDS: MEROPENEM 500 MG in SODIUM CHLORIDE 0.9% 100 ML IV SCH ×4 (03:55→18:45)
[2021-09-19 06:11] LABS: Basophils % 0.1 % (0.0-0.8); Hematocrit 32.2 VOL% (35.7-47.0); Hemoglobin 10.2 GM/DL (12.0-16.0); Immature Granulocytes % 1.4 %; Immature Granulocytes Absolute 0.23 #; Lymphocytes # 1.1 10*3/uL (1.4-4.0); Lymphocytes % 6.9 % (21.3-54.2); Mean Corpuscular HGB Conc 31.7 GM/DL (32-36); Mean Platelet Volume 9.7 FL (9.6-12.0); Monocytes % 3.2 % (1.7-12.7); Neutrophils % 88.4 % (38.7-73.9); Platelet Count 572 T/CUMM (130-400); Red Blood Count 3.62 MC/CUMM (3.8-5.5); Red Cell Distribution Width 13.9 % (9.3-17.3); White Blood Count 16.5 T/CUMM (4-12)
[2021-09-19 06:30] LABS: Albumin 1.5 G/DL (3.4-5.0); Bilirubin,Total 0.9 MG/DL (0.20-1.00); Calcium 8.7 MG/DL (8.5-10.1); Osmolality,Calculated 293.2 MOS/KG (273-304); Potassium 4.3 MMOL/L (3.5-5.1); Total Protein 7.5 G/DL (6.4-8.2)
[2021-09-19] MEDS: INSULIN LISPRO 100 UNIT/ML SUBCUT SCH ×4 (08:12→23:10)
[2021-09-19] MEDS: LINACLOTIDE 145 MCG CAPSULE PO SCH (08:13)
[2021-09-19] MEDS: CYANOCOBALAMIN 500 MCG TABLET PO SCH (08:14)
[2021-09-19] MEDS: PANTOPRAZOLE 40 MG VIAL IV SCH ×2 (08:23→21:52)
[2021-09-19] MEDS: FUROSEMIDE 40 MG/4 ML VIAL IV SCH ×3 (08:26→18:44)
[2021-09-19] MEDS: DEXAMETHASONE 10 MG/1 ML VIAL IV SCH ×2 (08:27→21:50)
[2021-09-19] MEDS: CETIRIZINE 10 MG TABLET PO SCH (08:28)
[2021-09-19] MEDS: GABAPENTIN 300 MG CAPSULE PO SCH ×3 (08:28→21:50)
[2021-09-19] MEDS: ENOXAPARIN 40 MG/0.4 ML SYRINGE SUBCUT SCH ×2 (08:28→21:51)
[2021-09-19] MEDS: BACLOFEN 10 MG TABLET PO SCH ×3 (08:28→21:51)
[2021-09-19] MEDS: POTASSIUM CHLORIDE 20 MEQ TABLET PO SCH (08:28)
[2021-09-19] MEDS: CHOLECALCIFEROL 5,000 UNIT TABLET PO SCH (08:28)
[2021-09-19] MEDS: ASCORBIC ACID 500 MG TABLET PO SCH ×2 (08:29→21:50)
[2021-09-19] MEDS: DAPAGLIFLOZIN 10 MG TABLET PO SCH (08:29)
[2021-09-19] MEDS: POLYETHYLENE GLYCOL POWDER 17 GM PACK PO SCH ×2 (08:29→21:53)
[2021-09-19] MEDS: ALUMINUM/MAGNES/SIMETH MAX STR 30 ML UDCUP PO SCH ×2 (08:29→08:58)
[2021-09-19] MEDS: LINEZOLID INJ 600 MG/300 ML PREMIX IV SCH ×2 (10:15→22:11)
[2021-09-19] MEDS: metFORMIN 500 MG TABLET PO SCH ×3 (12:29→17:23)
[2021-09-19] MEDS ORDERED: glipiZIDE 5 MG TABLET PO SCH (17:00)
[2021-09-19] MEDS: MONTELUKAST 10 MG TABLET PO SCH (21:49)
[2021-09-19] MEDS: INSULIN GLARGINE 100 UNIT/ML SUBCUT SCH (21:51)
[2021-09-19] MEDS: FOLIC ACID 1 MG TABLET PO SCH (21:51)
[2021-09-20] MEDS: ALBUTEROL 2.5 MG/3 ML NEB RESP TX SCH ×4 (00:24→19:34)
[2021-09-20] MEDS: metFORMIN 500 MG TABLET PO SCH ×3 (04:42→16:36)
[2021-09-20 05:32] LABS: Basophils % 0.1 % (0.0-0.8); Hematocrit 33.7 VOL% (35.7-47.0); Hemoglobin 10.8 GM/DL (12.0-16.0); Immature Granulocytes % 2.1 %; Immature Granulocytes Absolute 0.29 #; Lymphocytes % 7.4 % (21.3-54.2); Mean Corpuscular Volume 88.5 FL (87-102); Mean Platelet Volume 9.5 FL (9.6-12.0); Monocytes % 7.6 % (1.7-12.7); Neutrophils % 82.8 % (38.7-73.9); Platelet Count 573 T/CUMM (130-400); Red Blood Count 3.81 MC/CUMM (3.8-5.5); Red Cell Distribution Width 13.7 % (9.3-17.3); White Blood Count 13.5 T/CUMM (4-12)
[2021-09-20 05:44] LABS: Calcium 9.1 MG/DL (8.5-10.1); Osmolality,Calculated 282.5 MOS/KG (273-304); Potassium 3.9 MMOL/L (3.5-5.1)
[2021-09-20] MEDS: ONDANSETRON 4 MG/2 ML VIAL IV PRN ×2 (10:05→22:20)
[2021-09-20] MEDS: INSULIN LISPRO 100 UNIT/ML SUBCUT SCH ×4 (10:07→22:22)
[2021-09-20] MEDS: FUROSEMIDE 40 MG/4 ML VIAL IV SCH ×2 (10:07→16:35)
[2021-09-20] MEDS: LINACLOTIDE 145 MCG CAPSULE PO SCH (10:08)
[2021-09-20] MEDS: DEXAMETHASONE 10 MG/1 ML VIAL IV SCH ×2 (10:08→22:20)
[2021-09-20] MEDS: CHOLECALCIFEROL 5,000 UNIT TABLET PO SCH (10:08)
[2021-09-20] MEDS: DAPAGLIFLOZIN 10 MG TABLET PO SCH (10:08)
[2021-09-20] MEDS: POTASSIUM CHLORIDE 20 MEQ TABLET PO SCH (10:09)
[2021-09-20] MEDS: ASCORBIC ACID 500 MG TABLET PO SCH ×2 (10:09→22:21)
[2021-09-20] MEDS: GABAPENTIN 300 MG CAPSULE PO SCH ×3 (10:09→22:20)
[2021-09-20] MEDS: PANTOPRAZOLE 40 MG VIAL IV SCH ×2 (10:09→22:20)
[2021-09-20] MEDS: ENOXAPARIN 40 MG/0.4 ML SYRINGE SUBCUT SCH ×2 (10:10→22:21)
[2021-09-20] MEDS: CETIRIZINE 10 MG TABLET PO SCH (10:10)
[2021-09-20] MEDS: CYANOCOBALAMIN 500 MCG TABLET PO SCH (10:11)
[2021-09-20] MEDS: POLYETHYLENE GLYCOL POWDER 17 GM PACK PO SCH ×2 (10:11→22:22)
[2021-09-20] MEDS: BACLOFEN 10 MG TABLET PO SCH ×3 (10:11→22:20)
[2021-09-20] MEDS: ALUMINUM/MAGNES/SIMETH MAX STR 30 ML UDCUP PO SCH (10:12)
[2021-09-20] MEDS: LINEZOLID INJ 600 MG/300 ML PREMIX IV SCH (10:21)
[2021-09-20] MEDS: FLUoxetine 20 MG CAPSULE PO SCH (16:36)
[2021-09-20] MEDS: MONTELUKAST 10 MG TABLET PO SCH (22:20)
[2021-09-20] MEDS: INSULIN GLARGINE 100 UNIT/ML SUBCUT SCH (22:21)
[2021-09-20] MEDS: FOLIC ACID 1 MG TABLET PO SCH (22:21)
[2021-09-21] MEDS: ALBUTEROL 2.5 MG/3 ML NEB RESP TX SCH ×4 (00:02→19:29)
[2021-09-21 06:39] LABS: Basophils % 0.2 % (0.0-0.8); Hematocrit 35.3 VOL% (35.7-47.0); Hemoglobin 11.4 GM/DL (12.0-16.0); Immature Granulocytes Absolute 0.22 #; Lymphocytes # 1.5 10*3/uL (1.4-4.0); Lymphocytes % 13.2 % (21.3-54.2); Mean Corpuscular HGB Conc 32.3 GM/DL (32-36); Mean Corpuscular Volume 88.3 FL (87-102); Mean Platelet Volume 9.4 FL (9.6-12.0); Monocytes % 6.6 % (1.7-12.7); Platelet Count 541 T/CUMM (130-400); Red Cell Distribution Width 13.6 % (9.3-17.3); White Blood Count 11.2 T/CUMM (4-12)
[2021-09-21 06:58] LABS: Osmolality,Calculated 282.1 MOS/KG (273-304); Potassium 4.1 MMOL/L (3.5-5.1)
[2021-09-21] MEDS: LINACLOTIDE 145 MCG CAPSULE PO SCH (09:08)
[2021-09-21] MEDS: INSULIN LISPRO 100 UNIT/ML SUBCUT SCH ×4 (09:08→23:48)
[2021-09-21] MEDS: FUROSEMIDE 40 MG/4 ML VIAL IV SCH ×2 (09:09→16:20)
[2021-09-21] MEDS: PANTOPRAZOLE 40 MG VIAL IV SCH ×2 (09:11→22:38)
[2021-09-21] MEDS: DEXAMETHASONE 10 MG/1 ML VIAL IV SCH ×2 (09:12→22:39)
[2021-09-21] MEDS: ONDANSETRON 4 MG/2 ML VIAL IV PRN (09:16)
[2021-09-21] MEDS: ENOXAPARIN 40 MG/0.4 ML SYRINGE SUBCUT SCH ×2 (09:18→22:40)
[2021-09-21] MEDS: DAPAGLIFLOZIN 10 MG TABLET PO SCH (09:19)
[2021-09-21] MEDS: ALUMINUM/MAGNES/SIMETH MAX STR 30 ML UDCUP PO SCH (09:19)
[2021-09-21] MEDS: CYANOCOBALAMIN 500 MCG TABLET PO SCH (09:19)
[2021-09-21] MEDS: FLUoxetine 20 MG CAPSULE PO SCH (09:19)
[2021-09-21] MEDS: CETIRIZINE 10 MG TABLET PO SCH (09:19)
[2021-09-21] MEDS: metFORMIN 500 MG TABLET PO SCH ×2 (09:19→16:21)
[2021-09-21] MEDS: BACLOFEN 10 MG TABLET PO SCH ×3 (09:19→22:40)
[2021-09-21] MEDS: GABAPENTIN 300 MG CAPSULE PO SCH ×3 (09:19→22:40)
[2021-09-21] MEDS: ASCORBIC ACID 500 MG TABLET PO SCH ×2 (09:19→22:39)
[2021-09-21] MEDS: POTASSIUM CHLORIDE 20 MEQ TABLET PO SCH (09:19)
[2021-09-21] MEDS: CHOLECALCIFEROL 5,000 UNIT TABLET PO SCH (09:20)
[2021-09-21] MEDS: POLYETHYLENE GLYCOL POWDER 17 GM PACK PO SCH ×2 (09:20→23:48)
[2021-09-21] MEDS: FOLIC ACID 1 MG TABLET PO SCH (22:39)
[2021-09-21] MEDS: MONTELUKAST 10 MG TABLET PO SCH (22:39)
[2021-09-21] MEDS: INSULIN GLARGINE 100 UNIT/ML SUBCUT SCH (22:40)
[2021-09-22] MEDS: ALBUTEROL 2.5 MG/3 ML NEB RESP TX SCH ×4 (00:09→19:02)
[2021-09-22] MEDS: ONDANSETRON 4 MG/2 ML VIAL IV PRN (02:32)
[2021-09-22 07:15] LABS: Basophils % 0.3 % (0.0-0.8); Eosinophils % 0.1 % (0.00-10.9); Hematocrit 37.4 VOL% (35.7-47.0); Hemoglobin 12.2 GM/DL (12.0-16.0); Immature Granulocytes % 2.5 %; Immature Granulocytes Absolute 0.35 #; Lymphocytes # 2.2 10*3/uL (1.4-4.0); Lymphocytes % 15.6 % (21.3-54.2); Mean Corpuscular HGB Conc 32.6 GM/DL (32-36); Mean Corpuscular Volume 87.4 FL (87-102); Mean Platelet Volume 9.4 FL (9.6-12.0); Monocytes % 4.2 % (1.7-12.7); Neutrophils % 77.3 % (38.7-73.9); Platelet Count 584 T/CUMM (130-400); Red Blood Count 4.28 MC/CUMM (3.8-5.5); Red Cell Distribution Width 13.6 % (9.3-17.3); White Blood Count 13.8 T/CUMM (4-12)
[2021-09-22 07:31] LABS: Calcium 8.8 MG/DL (8.5-10.1); Osmolality,Calculated 276.5 MOS/KG (273-304); Potassium 4.1 MMOL/L (3.5-5.1)
[2021-09-22] MEDS: INSULIN LISPRO 100 UNIT/ML SUBCUT SCH ×4 (09:36→21:43)
[2021-09-22] MEDS: LINACLOTIDE 145 MCG CAPSULE PO SCH (11:10)
[2021-09-22] MEDS: metFORMIN 500 MG TABLET PO SCH ×2 (11:11→18:38)
[2021-09-22] MEDS: FUROSEMIDE 40 MG/4 ML VIAL IV SCH ×2 (11:11→18:39)
[2021-09-22] MEDS: DAPAGLIFLOZIN 10 MG TABLET PO SCH (11:12)
[2021-09-22] MEDS: POTASSIUM CHLORIDE 20 MEQ TABLET PO SCH (11:12)
[2021-09-22] MEDS: BACLOFEN 10 MG TABLET PO SCH ×3 (11:13→21:42)
[2021-09-22] MEDS: ENOXAPARIN 40 MG/0.4 ML SYRINGE SUBCUT SCH ×2 (11:13→21:42)
[2021-09-22] MEDS: ALUMINUM/MAGNES/SIMETH MAX STR 30 ML UDCUP PO SCH (11:14)
[2021-09-22] MEDS: POLYETHYLENE GLYCOL POWDER 17 GM PACK PO SCH ×2 (11:14→21:47)
[2021-09-22] MEDS: GABAPENTIN 300 MG CAPSULE PO SCH ×3 (11:15→21:42)
[2021-09-22] MEDS: FLUoxetine 20 MG CAPSULE PO SCH (11:16)
[2021-09-22] MEDS: ASCORBIC ACID 500 MG TABLET PO SCH ×2 (11:16→21:42)
[2021-09-22] MEDS: PANTOPRAZOLE 40 MG VIAL IV SCH ×2 (11:16→22:48)
[2021-09-22] MEDS: CYANOCOBALAMIN 500 MCG TABLET PO SCH (11:16)
[2021-09-22] MEDS: CHOLECALCIFEROL 5,000 UNIT TABLET PO SCH (11:17)
[2021-09-22] MEDS: CETIRIZINE 10 MG TABLET PO SCH (11:17)
[2021-09-22] MEDS: MONTELUKAST 10 MG TABLET PO SCH (21:42)
[2021-09-22] MEDS: FOLIC ACID 1 MG TABLET PO SCH (21:42)
[2021-09-22] MEDS: INSULIN GLARGINE 100 UNIT/ML SUBCUT SCH (21:43)
[2021-09-23] MEDS: ALBUTEROL 2.5 MG/3 ML NEB RESP TX SCH ×4 (00:09→19:06)
[2021-09-23] MEDS: ONDANSETRON 4 MG/2 ML VIAL IV PRN ×2 (00:18→16:45)
[2021-09-23 06:37] LABS: Basophils # 0.1 10*3/uL (0.0-0.2); Basophils % 0.6 % (0.0-0.8); Eosinophils # 0.6 10*3/uL (0.0-0.87); Eosinophils % 4.2 % (0.00-10.9); Hematocrit 40.3 VOL% (35.7-47.0); Hemoglobin 12.6 GM/DL (12.0-16.0); Immature Granulocytes % 3.3 %; Immature Granulocytes Absolute 0.46 #; Lymphocytes # 4.6 10*3/uL (1.4-4.0); Lymphocytes % 32.8 % (21.3-54.2); Mean Corpuscular HGB Conc 31.3 GM/DL (32-36); Mean Corpuscular Volume 91.2 FL (87-102); Mean Platelet Volume 9.2 FL (9.6-12.0); Monocytes % 7.3 % (1.7-12.7); Neutrophils % 51.8 % (38.7-73.9); Platelet Count 522 T/CUMM (130-400); Red Blood Count 4.42 MC/CUMM (3.8-5.5); Red Cell Distribution Width 13.8 % (9.3-17.3); White Blood Count 13.9 T/CUMM (4-12)
[2021-09-23 06:54] LABS: Calcium 8.9 MG/DL (8.5-10.1); Osmolality,Calculated 269.5 MOS/KG (273-304); Potassium 3.8 MMOL/L (3.5-5.1)
[2021-09-23] MEDS: INSULIN LISPRO 100 UNIT/ML SUBCUT SCH ×4 (10:24→21:21)
[2021-09-23] MEDS: LINACLOTIDE 145 MCG CAPSULE PO SCH (10:24)
[2021-09-23] MEDS: metFORMIN 500 MG TABLET PO SCH ×2 (10:25→18:18)
[2021-09-23] MEDS: FUROSEMIDE 40 MG/4 ML VIAL IV SCH ×2 (10:25→16:45)
[2021-09-23] MEDS: DAPAGLIFLOZIN 10 MG TABLET PO SCH (10:25)
[2021-09-23] MEDS: BACLOFEN 10 MG TABLET PO SCH ×3 (10:26→21:16)
[2021-09-23] MEDS: ENOXAPARIN 40 MG/0.4 ML SYRINGE SUBCUT SCH ×2 (10:27→21:16)
[2021-09-23] MEDS: ALUMINUM/MAGNES/SIMETH MAX STR 30 ML UDCUP PO SCH (10:28)
[2021-09-23] MEDS: POLYETHYLENE GLYCOL POWDER 17 GM PACK PO SCH ×2 (10:28→21:24)
[2021-09-23] MEDS: PANTOPRAZOLE 40 MG VIAL IV SCH ×2 (10:29→21:21)
[2021-09-23] MEDS: predniSONE 20 MG TABLET PO SCH (10:29)
[2021-09-23] MEDS: FLUoxetine 20 MG CAPSULE PO SCH (10:30)
[2021-09-23] MEDS: CYANOCOBALAMIN 500 MCG TABLET PO SCH (10:30)
[2021-09-23] MEDS: CHOLECALCIFEROL 5,000 UNIT TABLET PO SCH (10:31)
[2021-09-23] MEDS: CETIRIZINE 10 MG TABLET PO SCH (10:31)
[2021-09-23] MEDS: ASCORBIC ACID 500 MG TABLET PO SCH ×2 (10:31→21:16)
[2021-09-23] MEDS: POTASSIUM CHLORIDE 20 MEQ TABLET PO SCH (10:35)
[2021-09-23] MEDS: GABAPENTIN 300 MG CAPSULE PO SCH ×3 (10:35→21:16)
[2021-09-23] MEDS: FOLIC ACID 1 MG TABLET PO SCH (21:16)
[2021-09-23] MEDS: MONTELUKAST 10 MG TABLET PO SCH (21:16)
[2021-09-23] MEDS: INSULIN GLARGINE 100 UNIT/ML SUBCUT SCH (21:17)
[2021-09-24] MEDS: ALBUTEROL 2.5 MG/3 ML NEB RESP TX SCH ×4 (00:20→19:53)
[2021-09-24 06:43] LABS: Basophils # 0.1 10*3/uL (0.0-0.2); Basophils % 0.3 % (0.0-0.8); Eosinophils # 0.7 10*3/uL (0.0-0.87); Eosinophils % 3.7 % (0.00-10.9); Hematocrit 43.9 VOL% (35.7-47.0); Hemoglobin 14.1 GM/DL (12.0-16.0); Immature Granulocytes % 2.3 %; Immature Granulocytes Absolute 0.42 #; Lymphocytes # 3.4 10*3/uL (1.4-4.0); Lymphocytes % 18.7 % (21.3-54.2); Mean Corpuscular HGB Conc 32.1 GM/DL (32-36); Mean Platelet Volume 9.3 FL (9.6-12.0); Monocytes % 7.9 % (1.7-12.7); Neutrophils % 67.1 % (38.7-73.9); Platelet Count 559 T/CUMM (130-400); Red Blood Count 4.99 MC/CUMM (3.8-5.5); Red Cell Distribution Width 14.1 % (9.3-17.3); White Blood Count 18.1 T/CUMM (4-12)
[2021-09-24 07:06] LABS: Calcium 9.1 MG/DL (8.5-10.1); Osmolality,Calculated 268.5 MOS/KG (273-304); Potassium 4.7 MMOL/L (3.5-5.1)
[2021-09-24] MEDS: ASCORBIC ACID 500 MG TABLET PO SCH ×2 (09:55→20:56)
[2021-09-24] MEDS: POTASSIUM CHLORIDE 20 MEQ TABLET PO SCH (09:56)
[2021-09-24] MEDS: predniSONE 20 MG TABLET PO SCH (09:56)
[2021-09-24] MEDS: FLUoxetine 20 MG CAPSULE PO SCH (09:56)
[2021-09-24] MEDS: CETIRIZINE 10 MG TABLET PO SCH (09:56)
[2021-09-24] MEDS: CYANOCOBALAMIN 500 MCG TABLET PO SCH (09:56)
[2021-09-24] MEDS: GABAPENTIN 300 MG CAPSULE PO SCH ×3 (09:57→20:55)
[2021-09-24] MEDS: CHOLECALCIFEROL 5,000 UNIT TABLET PO SCH (09:57)
[2021-09-24] MEDS: ENOXAPARIN 40 MG/0.4 ML SYRINGE SUBCUT SCH ×2 (09:57→20:58)
[2021-09-24] MEDS: PANTOPRAZOLE 40 MG VIAL IV SCH ×2 (09:58→20:56)
[2021-09-24] MEDS: FUROSEMIDE 40 MG/4 ML VIAL IV SCH ×2 (09:58→16:58)
[2021-09-24] MEDS: ALUMINUM/MAGNES/SIMETH MAX STR 30 ML UDCUP PO SCH (10:01)
[2021-09-24] MEDS: POLYETHYLENE GLYCOL POWDER 17 GM PACK PO SCH ×2 (10:01→21:11)
[2021-09-24] MEDS: BACLOFEN 10 MG TABLET PO SCH ×3 (10:03→20:55)
[2021-09-24] MEDS: LINACLOTIDE 145 MCG CAPSULE PO SCH (10:08)
[2021-09-24] MEDS: INSULIN LISPRO 100 UNIT/ML SUBCUT SCH ×4 (10:12→20:57)
[2021-09-24] MEDS: DAPAGLIFLOZIN 10 MG TABLET PO SCH (10:36)
[2021-09-24] MEDS: metFORMIN 500 MG TABLET PO SCH ×2 (10:46→17:00)
[2021-09-24] MEDS: MONTELUKAST 10 MG TABLET PO SCH (20:56)
[2021-09-24] MEDS: FOLIC ACID 1 MG TABLET PO SCH (20:56)
[2021-09-24] MEDS: INSULIN GLARGINE 100 UNIT/ML SUBCUT SCH (20:57)
[2021-09-25] MEDS: ALBUTEROL 2.5 MG/3 ML NEB RESP TX SCH (01:37)
[2021-09-25 05:58] LABS: Basophils % 0.2 % (0.0-0.8); Eosinophils # 0.1 10*3/uL (0.0-0.87); Eosinophils % 0.8 % (0.00-10.9); Hematocrit 37.3 VOL% (35.7-47.0); Hemoglobin 12.3 GM/DL (12.0-16.0); Immature Granulocytes % 1.5 %; Immature Granulocytes Absolute 0.27 #; Lymphocytes # 3.6 10*3/uL (1.4-4.0); Lymphocytes % 20.2 % (21.3-54.2); Mean Corpuscular Volume 86.5 FL (87-102); Mean Platelet Volume 9.8 FL (9.6-12.0); Neutrophils % 71.3 % (38.7-73.9); Platelet Count 464 T/CUMM (130-400); Red Blood Count 4.31 MC/CUMM (3.8-5.5); Red Cell Distribution Width 14.2 % (9.3-17.3); White Blood Count 17.9 T/CUMM (4-12)
[2021-09-25] MEDS: INSULIN LISPRO 100 UNIT/ML SUBCUT SCH ×2 (08:48→11:57)
[2021-09-25] MEDS: PANTOPRAZOLE 40 MG VIAL IV SCH (08:49)
[2021-09-25] MEDS: ENOXAPARIN 40 MG/0.4 ML SYRINGE SUBCUT SCH (08:49)
[2021-09-25] MEDS: FUROSEMIDE 40 MG/4 ML VIAL IV SCH (08:49)
[2021-09-25] MEDS ORDERED: DEXAMETHASONE 0.5 MG TABLET PO SCH (09:00)
[2021-09-25] MEDS: BACLOFEN 10 MG TABLET PO SCH (09:14)
[2021-09-25] MEDS: CYANOCOBALAMIN 500 MCG TABLET PO SCH (09:16)
[2021-09-25] MEDS: GABAPENTIN 300 MG CAPSULE PO SCH (09:16)
[2021-09-25] MEDS: CETIRIZINE 10 MG TABLET PO SCH (09:17)
[2021-09-25] MEDS: FLUoxetine 20 MG CAPSULE PO SCH (09:17)
[2021-09-25] MEDS: POTASSIUM CHLORIDE 20 MEQ TABLET PO SCH (09:18)
[2021-09-25] MEDS: DAPAGLIFLOZIN 10 MG TABLET PO SCH (09:19)
[2021-09-25] MEDS: metFORMIN 500 MG TABLET PO SCH (09:20)
[2021-09-25] MEDS: CHOLECALCIFEROL 5,000 UNIT TABLET PO SCH (09:20)
[2021-09-25] MEDS: ASCORBIC ACID 500 MG TABLET PO SCH (09:20)
[2021-09-25] MEDS: POLYETHYLENE GLYCOL POWDER 17 GM PACK PO SCH (09:21)
[2021-09-25] MEDS: ALUMINUM/MAGNES/SIMETH MAX STR 30 ML UDCUP PO SCH (09:22)
[2021-09-25] MEDS ORDERED: DEXAMETHASONE 4 MG TABLET PO SCH (09:30)
[2021-09-25] MEDS: LINACLOTIDE 145 MCG CAPSULE PO SCH (10:54)
[2021-09-25 11:16] VITALS: BP 119/71
[2021-09-25 23:45] LABS: Fungitell Quantitative Value < 31 pg/mL (<60 pg/mL)
== END 2021-09-25 15:47 | disposition home health service (06) | DRG 193 ==
LOC: N.ED 10:15 → N.EDINP 12:54 → SUATTDRO 12:54 → N.EDINP 15:34 → N.5E 15:52
PROVIDERS: ADMIT Internal Medicine; ATTEND Internal Medicine